=== PATIENT | female | born 1955 | race Two or more races ===

== ENCOUNTER 2018-10-03 12:52 | Day surgery (SDC) | payer OTHER ==
[~2018-10-03] VITALS: Ht 160 cm; Wt 64.9 kg
[~2018-10-03 12:52] MED LIST: ALCLOMETASONE; CITALOPRAM; MECLIZINE; METFORMIN; METRONIDAZOLE; NAPROXEN
[2018-10-03 14:06] VITALS: Ht 160 cm; Wt 64.9 kg
[2018-10-03 15:04] VITALS: BP 115/57; PULSE 55; RESP 18
[2018-10-03] MEDS ORDERED: PROPOFOL 20 ML ONE ×2 (17:12→17:45)
[2018-10-03 18:16] VITALS: BP 129/63; RESP 20
== END 2018-10-03 19:15 | disposition home or self-care (01) ==
LOC: GIL 12:52
PROVIDERS: ATTEND Internal Medicine Gastroenterology
DX: K64.8 Other hemorrhoids (principal); D12.2 Benign neoplasm of ascending colon; E11.9 Type 2 diabetes mellitus without complications; Z79.84 Long term (current) use of oral hypoglycemic drugs
CPT/HCPCS: 82962; 88305